=== PATIENT | female | born 1985 | race African-American/Black ===

== ENCOUNTER 2017-10-04 15:05 | Emergency (ER) | payer MEDICAID ==
[~2017-10-04] VITALS: Ht 170.2 cm; Wt 99.4 kg
[2017-10-04] MEDS ORDERED: ACETAMINOPHEN 325MG TABLET PO STA (21:09)
[2017-10-04] MEDS ORDERED: LABETALOL HCL 20MG/4ML CARPUJECT IV ONE (21:15)
[2017-10-04] MEDS ORDERED: ASPIRIN 81MG TABLET PO ONE (21:15)
[2017-10-04 21:48] LABS: CLARITY URINE CLOUDY (CLEAR); COLOR URINE YELLOW (YELLOW); KETONES URINE TRACE (NEGATIVE); LEUKOCYTE ESTERASE URINE 2+ (NEGATIVE); NITRITE URINE NEGATIVE (NEGATIVE); OCCULT BLOOD URINE NEGATIVE (NEGATIVE); PH URINE 5.5 (4.5-8.0); PROTEIN URINE NEGATIVE (NEGATIVE); SPECIFIC GRAVITY URINE 1.019 (1.005-1.030); UROBILINOGEN URINE 0.2 E.U./dL (0.2-1.0)
[2017-10-04 21:56] LABS: BASOPHILS % 1.3 % (0.0-2.0); EOSINOPHILS % 0.8 % (0.0-5.0); HEMOGLOBIN. 10.9 g/dL (12.0-16.0); LYMPHOCYTES % 36.5 % (20.0-50.0); MEAN CORPUSCULAR HEMOGLOBIN 22.4 pg (28.0-32.0); MEAN CORPUSCULAR VOLUME 71.5 fL (81.0-99.0); MONOCYTES % 9.6 % (2.0-8.0); NEUTROPHILS % 51.8 % (40.0-76.0); PLATELET 361 x1000/uL (130-400); RED BLOOD CELL COUNT 4.89 mill/uL (4.2-5.4); RED CELL DISTRIBUTION WIDTH 22.5 % (11.6-14.6)
[2017-10-04 22:03] LABS: CHLORIDE 100 mEq/L (98-107)
[2017-10-04 22:05] LABS: INR 1.1; PROTHROMBIN TIME 11.3 sec (9.4-11.6)
[2017-10-04 22:08] LABS: ETHANOL BLOOD < 10 mg/dL; HCG SCREEN NEGATIVE
[2017-10-04 22:09] LABS: *AMPHETAMINES SCREEN URINE NEGATIVE (NEGATIVE); *BARBITURATES SCREEN URINE NEGATIVE (NEGATIVE); *BENZODIAZEPINES SCREEN URINE NEGATIVE (NEGATIVE); *COCAINE SCREEN URINE NEGATIVE (NEGATIVE); METHADONE URINE SCREEN NEGATIVE (NEGATIVE); OPIATES URINE SCREEN NEGATIVE (NEGATIVE); PHENCYCLIDINE URINE SCREEN NEGATIVE (NEGATIVE)
[2017-10-04 22:10] LABS: CANNABINOID URINE SCREEN PRESUMTIVE POSITIVE (NEGATIVE)
[2017-10-04 22:14] LABS: TROPONIN I < 0.02 ng/mL (0.00-0.04)
[2017-10-04] MEDS ORDERED: LABETALOL 5MG/ML SYR 20 MG/4 ML SYRINGE IV SCH (22:26)
[2017-10-04 22:33] LABS: PLATELET ESTIMATE NORMAL
[2017-10-04] MEDS ORDERED: NITROFURANTOIN 100MG M/M CAPSULE PO NR (22:45)
[2017-10-04] MEDS ORDERED: HYDRALAZINE 20MG/ML VIAL IV NR (22:45)
[2017-10-04] MEDS ORDERED: POTASSIUM BICARB/CIT ACID 25 MEQ TABLET.EFF PO NR (22:45)
[2017-10-05] VITALS: BP 150/62
== END 2017-10-05 00:14 | disposition home or self-care (01) ==
LOC: ER 19:11
DX: I10 Essential (primary) hypertension (principal); F17.210 Nicotine dependence, cigarettes, uncomplicated; F12.10 Cannabis abuse, uncomplicated; Z91.14 Patient's other noncompliance with medication regimen
CPT/HCPCS: 36415; 70450; 71045; 80053; 80305; 81003; 84484; 84703; 85025; 85610; 93005; 96374; 96375; 99291; 99406; G0482; J0360; J3490

== ENCOUNTER 2019-04-13 16:33 | Emergency (ER) | payer MEDICAID ==
[~2019-04-13] VITALS: Ht 175.3 cm; Wt 99.0 kg
[2019-04-13 18:45] LABS: BASOPHILS % 0.7 % (0.0-2.0); EOSINOPHILS % 0.3 % (0.0-5.0); HEMATOCRIT. 33.9 % (36.0-48.0); HEMOGLOBIN. 10.6 g/dL (12.0-16.0); LYMPHOCYTES % 25.2 % (20.0-50.0); MEAN CORPUSCULAR HEMOGLOBIN 23.6 pg (28.0-32.0); MEAN CORPUSCULAR VOLUME 75.3 fL (81.0-99.0); MEAN PLATELET VOLUME 8.2 fl (7.4-10.4); MONOCYTES % 8.3 % (2.0-8.0); NEUTROPHILS % 65.5 % (40.0-76.0); PLATELET 259 x1000/uL (130-400); RED CELL DISTRIBUTION WIDTH 21.2 % (11.6-14.6)
[2019-04-13] MEDS ORDERED: SODIUM CHLORIDE 0.9% 1,000 ML IV ONE (18:45)
[2019-04-13] MEDS ORDERED: METOCLOPRAMIDE HCL 10MG/2ML VIAL IV ONE (18:45)
[2019-04-13] MEDS ORDERED: KETOROLAC 15MG/ML VIAL IV ONE (18:45)
[2019-04-13] MEDS ORDERED: AMLODIPINE 10MG TABLET PO ONE (18:45)
[2019-04-13 18:51] LABS: CHLORIDE 106 mEq/L (98-107)
[2019-04-13 22:04] VITALS: BP 175/118
== END 2019-04-13 22:04 | disposition home or self-care (01) ==
LOC: ER 16:33
DX: R51 Headache (principal); I10 Essential (primary) hypertension; F17.200 Nicotine dependence, unspecified, uncomplicated; Z98.890 Other specified postprocedural states
CPT/HCPCS: 36415; 71045; 80053; 83690; 84484; 85025; 93005; 96361; 96374; 96375; 99284; 99406; J1885; J2765; J7030

== ENCOUNTER 2019-12-18 14:17 | Emergency (ER) | payer MEDICAID, SELFPAY ==
[~2019-12-18] VITALS: Ht 165.1 cm; Wt 110.0 kg
[2019-12-18] MEDS ORDERED: KETOROLAC 30MG/ML VIAL IV STA (15:05)
[2019-12-18] MEDS ORDERED: ONDANSETRON HCL 4MG/2ML INJ IV STA ×2 (15:05→18:46)
[2019-12-18] MEDS ORDERED: SODIUM CHLORIDE 0.9% 1,000 ML IV ONE (15:05)
[2019-12-18 15:22] LABS: HEMATOCRIT. 27.8 % (36.0-48.0); HEMOGLOBIN. 8.3 g/dL (12.0-16.0); MEAN CORPUSCULAR HEMOGLOBIN 19.3 pg (28.0-32.0); MEAN CORPUSCULAR VOLUME 64.2 fL (81.0-99.0); MEAN PLATELET VOLUME 8.5 fl (7.4-10.4); PLATELET 287 x1000/uL (130-400); RED BLOOD CELL COUNT 4.33 mill/uL (4.2-5.4); RED CELL DISTRIBUTION WIDTH 22.1 % (11.6-14.6)
[2019-12-18 15:24] LABS: CHLORIDE 101 mEq/L (98-107)
[2019-12-18 15:25] LABS: PROTHROMBIN TIME 11.3 sec (9.6-11.0)
[2019-12-18 15:29] LABS: ETHANOL BLOOD < 10 mg/dL
[2019-12-18 15:38] LABS: PLATELET ESTIMATE NORMAL
[2019-12-18] MEDS ORDERED: KCL 20MEQ/100ML PREMIX 100 ML IV SCH (16:30)
[2019-12-18 18:14] LABS: CLARITY URINE CLOUDY (CLEAR); COLOR URINE DARK YELLOW (YELLOW); KETONES URINE 1+ (NEGATIVE); LEUKOCYTE ESTERASE URINE TRACE (NEGATIVE); NITRITE URINE NEGATIVE (NEGATIVE); OCCULT BLOOD URINE 2+ (NEGATIVE); PH URINE 6.5 (4.5-8.0); PROTEIN URINE 2+ (NEGATIVE); SPECIFIC GRAVITY URINE 1.025 (1.005-1.030)
[2019-12-18] MEDS ORDERED: FAMOTIDINE 20MG/2ML VIAL IV ONE (19:00)
[2019-12-18] MEDS ORDERED: POTASSIUM CHLORIDE 20MEQ TABLET SR PO ONE (19:00)
[2019-12-18] MEDS ORDERED: CEFTRIAXONE 1 G PREMIX 50 ML IV ONE (19:00)
[2019-12-18 19:42] VITALS: BP 129/86
== END 2019-12-18 19:46 | disposition home or self-care (01) ==
LOC: ER 14:17
DX: J06.9 Acute upper respiratory infection, unspecified (principal); R74.0 Nonspecific elevation of levels of transaminase and lactic acid dehydrogenase [LDH]; E87.6 Hypokalemia; A59.9 Trichomoniasis, unspecified; Z20.828 Contact with and (suspected) exposure to other viral communicable diseases; I10 Essential (primary) hypertension; F12.10 Cannabis abuse, uncomplicated; Z98.890 Other specified postprocedural states
CPT/HCPCS: 36415; 71045; 80053; 80320; 81003; 81025; 83880; 85025; 85610; 87635; 87804; 93005; 96361; 96365; 96367; 96375; 99285; J0696; J1885; J2405; J3480; J3490; J7030; G0480

== ENCOUNTER 2020-11-30 18:37 | Emergency (ER) | payer MEDICAID, SELFPAY ==
[~2020-11-30] VITALS: Ht 167.6 cm; Wt 89.0 kg
[2020-12-01 01:19] LABS: BASOPHILS % 2.7 % (0.0-2.0); EOSINOPHILS % 0.6 % (0.0-5.0); HEMATOCRIT. 28.5 % (36.0-48.0); HEMOGLOBIN. 8.3 g/dL (12.0-16.0); LYMPHOCYTES % 44.5 % (20.0-50.0); MEAN CORPUSCULAR HEMOGLOBIN 19.5 pg (28.0-32.0); MEAN CORPUSCULAR VOLUME 66.8 fL (81.0-99.0); MEAN PLATELET VOLUME 7.6 fl (7.4-10.4); MONOCYTES % 14.1 % (2.0-8.0); NEUTROPHILS % 38.1 % (40.0-76.0); PLATELET 303 x1000/uL (130-400); RED BLOOD CELL COUNT 4.27 mill/uL (4.2-5.4); RED CELL DISTRIBUTION WIDTH 21.2 % (11.6-14.6)
[2020-12-01 01:25] LABS: CHLORIDE 109 mEq/L (98-107)
[2020-12-01 01:40] LABS: HCG SCREEN NEGATIVE
[2020-12-01] MEDS ORDERED: POTASSIUM CHLORIDE 20MEQ TABLET SR PO NR (02:00)
[2020-12-01 02:15] LABS: CLARITY URINE CLOUDY (CLEAR); COLOR URINE DARK YELLOW (YELLOW); KETONES URINE TRACE (NEGATIVE); LEUKOCYTE ESTERASE URINE TRACE (NEGATIVE); NITRITE URINE POSITIVE (NEGATIVE); OCCULT BLOOD URINE 2+ (NEGATIVE); PH URINE 5.5 (4.5-8.0); PROTEIN URINE 1+ (NEGATIVE); SPECIFIC GRAVITY URINE 1.021 (1.005-1.030)
[2020-12-01 02:25] LABS: D-DIMER 0.78 mg/L FEU (<0.50); INR 1.1; PARTIAL THROMBOPLASTIN TIME 26.6 sec (23.4-31.0); PROTHROMBIN TIME 11.3 sec (9.6-11.0)
[2020-12-01] MEDS ORDERED: POTASSIUM CHLORIDE INJ 40 MEQ in DEXT 5% WATER 250 ML IV NR (03:00)
[2020-12-01] MEDS ORDERED: CEFTRIAXONE 1 G PREMIX 50 ML IV NR (03:30)
[2020-12-01] MEDS ORDERED: FERR324T11 MT (03:43)
[2020-12-01] MEDS ORDERED: CEPH500C2 MT (03:43)
[2020-12-01] MEDS ORDERED: HYDROCODONE/ACETAMINOPHEN 5/325MG TABLET PO NR (04:00)
[2020-12-01] MEDS ORDERED: IBUPROFEN 400MG TABLET PO NR (04:00)
[2020-12-01 04:07] LABS: PLATELET ESTIMATE NORMAL
[2020-12-01] MEDS ORDERED: IOHEXOL-350 100 ML BOTTLE ONE (06:44)
[2020-12-01 09:45] VITALS: BP 158/122
[2020-12-01] MEDS ORDERED: ONDANSETRON HCL 4MG/2ML INJ IV ONE (12:15)
== END 2020-12-01 13:22 | disposition home or self-care (01) ==
LOC: ER 18:37
DX: R07.89 Other chest pain (principal); N93.9 Abnormal uterine and vaginal bleeding, unspecified; R60.0 Localized edema; E87.6 Hypokalemia; I10 Essential (primary) hypertension; F12.10 Cannabis abuse, uncomplicated
CPT/HCPCS: 36415; 71045; 71275; 76705; 80053; 81003; 83880; 84484; 84703; 85025; 85379; 85610; 85730; 93005; 96365; 96368; 99285; J0696; J3480; J7060; Q9967